=== PATIENT | female | born 1980 | race Asian ===

== ENCOUNTER 2020-03-31 11:53 | Emergency (ER) | payer OTHER ==
[2020-03-31] MEDS ORDERED: BUFFERED LIDOCAINE 10 ML SYRINGE SUBQ STA (12:25)
[2020-03-31] MEDS ORDERED: DOXYCYCLINE 100 MG TABLET PO STA (12:26)
--- NOTE | 2020-03-31 12:28 | ED Physician Documentation ---
PD HPI UPPER EXT INJURY - Stated complaint Stated Complaint: LT HAND LAC - Chief complaint Chief Complaint: Laceration - History obtained from History obtained from: Patient - History of Present Illness Location: Left Type of injury: Laceration - Additonal information Additional information: She was shucking oysters with a knife and stabbed herself in the palm of the left nondominant hand. She is up-to-date on tetanus. They are worried about infection, the knife was quite dirty with oyster goo. Review of Systems Constitutional: reports: Reviewed and negative Cardiac: reports: Reviewed and negative Respiratory: reports: Reviewed and negative PD PAST MEDICAL HISTORY - Past Medical History Past Medical History: No - Past Surgical History Past Surgical History: No - Present Medications Home Medications: Ambulatory Orders Medication Instructions Recorded Confirmed Doxycycline Hyclate 100 mg PO BID #6 capsule 03/31/20 - Allergies Allergies/Adverse Reactions: Allergies Allergy/AdvReac Type Severity Reaction Status Date / Time No Known Drug Allergies Allergy Verified 03/31/20 12:24 - Social History Does the pt smoke?: Yes Smoking Status: Current every day smoker Does the pt drink ETOH?: Yes Does the pt have substance abuse?: No - Immunizations Immunizations are current?: Yes PD ED PE NORMAL - Vitals Vital signs reviewed: Yes - General General: Alert and oriented X 3, No acute distress - HEENT HEENT: PERRL, EOMI - Extremities Extremities: Other (There is a 1 cm laceration in the thenar musculature, slightly dirty in the left palm without distal neurovascular compromise.) - Neuro Neuro: Alert and oriented X 3, Normal speech Results - Vitals Vitals: Vital Signs - 24 hr 03/31/20 12:15 Temperature 36.9 C Heart Rate 72 Respiratory 16 Rate Blood Pressure 128/76 O2 Saturation 100 Oxygen O2 Source Room air Procedures - Laceration (location) L hand Length in cm: 1 Wound type: Linear, Into subcut fat Neurovascular status: Sensory intact, Motor intact, Vascular intact Tendon involvement: Tendon intact Anesthesia: Lidocaine 1% Wound Preparation: Debrided moderately Skin layer closure: Nylon, Size #-0 - enter number (4-0), Other (single horizontal mattress) Other: Tetanus UTD Complexity: Simple Departure - Departure Disposition: 01 Home, Self Care Clinical Impression: Laceration of left hand Qualifiers: Encounter type: initial encounter Foreign body presence: without foreign body Qualified Code(s): S61.412A - Laceration without foreign body of left hand, initial encounter Condition: Good Record reviewed to determine appropriate education?: Yes Instructions: ED Laceration Hand Prescriptions: Doxycycline Hyclate 100 mg PO BID #6 capsule Comments: Stay out of the sun while you are on the antibiotic, it tends to make you sun sensitive. Return for signs of infection including redness, swelling, drainage, increased pain. Follow-up with your doctor in approximately 2 weeks for suture removal.
[2020-03-31] MEDS ORDERED: LIDOCAINE 1% 2 ML VIAL ONE (12:39)
[2020-03-31] MEDS ORDERED: LIDOCAINE 1% 2 ML VIAL SUBQ STA (12:41)
[2020-03-31 12:48] VITALS: BP 116/81
== END 2020-03-31 12:53 | disposition home or self-care (01) ==
LOC: ED 11:53
DX: S61.412A Laceration without foreign body of left hand, initial encounter (principal); W26.0XXA Contact with knife, initial encounter; Y93.G1 Activity, food preparation and clean up; F17.200 Nicotine dependence, unspecified, uncomplicated
CPT/HCPCS: 12001; 99282; 99283; A9270